=== PATIENT | male | born 2000 | race Caucasian/White ===

== ENCOUNTER 2021-02-09 00:54 | Emergency (ER) | payer SELFPAY ==
[~2021-02-09] VITALS: Ht 190.5 cm; Wt 79.4 kg
[2021-02-09] MEDS ORDERED: DEXAMETHASONE 4 MG TABLET PO ONE (01:30)
[2021-02-09] MEDS ORDERED: DEXAMETHASONE 4 MG TABLET ONE (01:47)
[2021-02-09 01:50] VITALS: BP 134/67
--- NOTE | 2021-02-09 01:50 | NUR ---
PT MEDICATED PER [facility] TOLERATED WELL
--- NOTE | 2021-02-09 01:51 | NUR ---
Patient/Caregiver given discharge instructions and they have confirmed that they understand the instructions. Patient ambulatory with steady gait.
== END 2021-02-09 03:02 | disposition home or self-care (01) ==
LOC: ED 02:30
DX: J02.8 Acute pharyngitis due to other specified organisms (principal); B97.89 Other viral agents as the cause of diseases classified elsewhere; F17.200 Nicotine dependence, unspecified, uncomplicated
CPT/HCPCS: 87081; 87880; 99283